=== PATIENT | male | born 1970 | race African-American/Black ===

== ENCOUNTER 2017-04-30 09:42 | Emergency (ER) | payer OTHER ==
[2017-04-30 10:00] VITALS: BP 143/83; PULSE 89; TEMP 98.1; BMI 24.3
--- NOTE | 2017-04-30 10:48 | PDOC ---
History of Present Illness - General Chief Complaint: Back Pain Stated Complaint: PAIN/ BACK, ABD Time Seen by Provider: 04/30/17 10:48 Past History - Past Medical History Allergies/Adverse Reactions: Allergies Allergy/AdvReac Type Severity Reaction Status Date / Time No Known Allergies Allergy Unverified 04/30/17 09:54 COPD: No - Suicide/Smoking/Psychosocial Hx Smoking History: Current every day smoker Number of Cigarettes Smoked Daily: 10 Information on smoking cessation initiated: Yes 'Breaking Loose' booklet given: 04/30/17 Hx Alcohol Use: No Drug/Substance Use Hx: No Substance Use Type: None *Physical Exam - Vital Signs Last Vital Signs Temp Pulse Resp BP Pulse Ox 98.1 F 89 18 143/83 100 04/30/17 09:55 04/30/17 09:55 04/30/17 09:55 04/30/17 09:55 04/30/17 09:55
[2017-04-30] MEDS ORDERED: KETOROLAC TROMETHAMINE 60 MG/2 ML VIAL IM ONE (11:17)
--- NOTE | 2017-04-30 11:17 | PDOC ---
History of Present Illness - General Chief Complaint: Back Pain Stated Complaint: PAIN/ BACK, ABD Time Seen by Provider: 04/30/17 10:48 History Source: Patient Exam Limitations: No Limitations - History of Present Illness Initial Comments: 04/30/17 11:19 Patient here with complaints of low back pain. 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 has worsened pain and mild spasm to his low back. 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 Related to being dehydrated. Has used ibuprofen for this pain with minimal resolved. also has a mass to his low back that was excised in 1990 but it has recurred Occurred: reports: just prior to arrival Severity: reports: moderate Pain Location: reports: back Associated Symptoms (Fall): denies symptoms Past History - Travel Traveled outside of the country in the last 30 days: No Close contact w/someone who was outside of country & ill: No - Past Medical History Allergies/Adverse Reactions: Allergies Allergy/AdvReac Type Severity Reaction Status Date / Time No Known Allergies Allergy Unverified 04/30/17 09:54 Home Medications: Ambulatory Orders Cyclobenzaprine HCl [Flexeril 10 mg] 10 mg PO BID PRN #14 tablet 04/30/17 Naproxen [Naprosyn -] 500 mg PO BID #20 tablet 04/30/17 COPD: No - Suicide/Smoking/Psychosocial Hx Smoking History: Current every day smoker Number of Cigarettes Smoked Daily: 10 Information on smoking cessation initiated: Yes 'Breaking Loose' booklet given: 04/30/17 Hx Alcohol Use: No Drug/Substance Use Hx: No Substance Use Type: None Trauma Specific PMHX - Complaint Specific PMHX Back Injury: No Neck Injury: No Review of Systems - Review of Systems Able to Perform ROS?: Yes Is the patient limited Setswana proficient: Yes Constitutional: Yes: Symptoms Reported HEENTM: Yes: See HPI. No: Symptoms Reported Respiratory: No: Symptoms reported Cardiac (ROS): No: Symptoms Reported ABD/GI: No: Symptoms Reported Musculoskeletal: Yes: Symptoms Reported, See HPI, Back Pain, Muscle Pain, Muscle Weakness Integumentary: No: Symptoms Reported Neurological: Yes: See HPI. No: Symptoms reported All Other Systems: Reviewed and Negative *Physical Exam - Vital Signs Last Vital Signs Temp Pulse Resp BP Pulse Ox 98.1 F 89 18 143/83 100 04/30/17 09:55 04/30/17 09:55 04/30/17 09:55 04/30/17 09:55 04/30/17 09:55 - Physical Exam General Appearance: Yes: Nourished, Appropriately Dressed, Apparent Distress, Moderate Distress HEENT: positive: SPENCER, Normal ENT Inspection, TMs Normal, Pharynx Normal Neck: positive: Supple. negative: Tender, Lymphadenopathy (R), Lymphadenopathy (L) Respiratory/Chest: positive: Lungs Clear, Normal Breath Sounds Gastrointestinal/Abdominal: positive: Soft. negative: Tender Musculoskeletal: positive: Normal Inspection, Decreased Range of Motion, Muscle Spasm (mild spasm to lumbar paravertebral muscles ), Other (sent with large soft tissue mass to midpoint lumbar spine which is tender around circumference however no erythema, redness, or evidence of infection. Has no true spine tenderness, but mild spasm noted to the paravertebral spinous muscles) Extremity: positive: Normal Capillary Refill, Normal Inspection, Normal Range of Motion. 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 Lipoma measuring 4.8 4.40.9 cm and given referral for surgical excision *DC/Admit/Observation/Transfer Diagnosis at time of Disposition: Lipoma of back Low back strain Qualifiers: Encounter type: initial encounter Qualified Code(s): S39.012A - Strain of muscle, fascia and tendon of lower back, initial encounter - Discharge Dispostion Disposition: HOME Condition at time of disposition: Stable Admit: No - Prescriptions Prescriptions: Cyclobenzaprine HCl [Flexeril 10 mg] 10 mg PO BID PRN #14 tablet PRN Reason: spasm Naproxen [Naprosyn -] 500 mg PO BID #20 tablet - Referrals Referrals: Juan Suarez MD [Staff Physician] - - Patient Instructions Printed Discharge Instructions: Lipoma, DI for Back Strain or Sprain Additional Instructions: Rest, no heavy lifting or exercise until pain is resolved Hot soaks to neck and low back as often as possible/hot showers or Jacuzzis No massage or therapy until spasm is gone Continue ibuprofen 2-200 mg tablets every 6 hours for the next 3 days then as needed for pain and swelling Cyclobenzaprine 1-10mg every 8 hours as needed for spasm If not significant improvement within 24 hours with medication and rest regime, followup with private physician for change in medications and /or therapy. - Post Discharge Activity Forms/Work/School Notes: Back to Work
[2017-04-30] MEDS ORDERED: KETOROLAC TROMETHAMINE 60 MG/2 ML VIAL ONE (11:21)
== END 2017-04-30 13:14 | disposition home or self-care (01) ==
LOC: JERFT 09:42
PROC: 3E0233Z Introduction of Anti-inflammatory into Muscle, Percutaneous Approach (ICD-10-PCS; principal; 2017-04-30)
DX: S39.012A Strain of muscle, fascia and tendon of lower back, initial encounter (principal); D17.1 Benign lipomatous neoplasm of skin and subcutaneous tissue of trunk; X50.0XXA Overexertion from strenuous movement or load, initial encounter; Y93.89 Activity, other specified; Y92.89 Other specified places as the place of occurrence of the external cause; Y99.0 Civilian activity done for income or pay
CPT/HCPCS: 76604; 99281-25

== ENCOUNTER 2017-10-30 18:57 | Emergency (ER) | payer OTHER ==
[2017-10-30 19:21] VITALS: BP 138/103; PULSE 97; TEMP 98.8; BMI 33.2
--- NOTE | 2017-10-30 19:22 | PDOC ---
Rapid Medical Evaluation Chief Complaint: Back Pain Time Seen by Provider: 10/30/17 19:18 Medical Evaluation: Allergies Allergy/AdvReac Type Severity Reaction Status Date / Time No Known Allergies Allergy Unverified 08/23/17 09:16 10/30/17 19:18 S: Back pain s/p surgery (lipoma removal)08/[address] Paul . c/o back pain radiating to left leg pain on and off since surgery. today pain worsening. patient also c/o left shoulder pain. patient reports taking naproxen with no relief in pain O: patient alert ox3. surgical site clean dry and intact. mild swelling at the site. A: acute on chronic back pain P: xray Patient to the ER for further management of care. 10/30/17 19:36
--- NOTE | 2017-10-30 21:28 | PDOC ---
History of Present Illness - General Chief Complaint: Back Pain Stated Complaint: PAIN Time Seen by Provider: 10/30/17 19:18 History Source: Patient Exam Limitations: No Limitations - History of Present Illness Initial Comments: This is a 47 YOM with h/o chronic back pain (with left sciatica since a work injury in 2013), rhabdomyolysis (in 2013 from overworking/dehydration at work) and back lipoma removal in 08/[address] Paul who p/w exacerbation of his chronic back pain radiating down the left leg. The pain is up to 10/10, it is the worst in his left upper buttock, and it radiates diffusely down his left leg to the bottom of the left foot. He states this is the same pain as normal for him, but it is worsened today. He has been taking naproxen sodium and Tylenol at home without relief. He has previously gotten relief with Flexeril but has run out of this prescription. He denies any recent falls or trauma. His PCP had ordered an MRI lumbar spine which showed disc bulging and herniations, disc height loss, and levoscoliosis. He has referral information for a neurologist and an orthopedist already and has plans to follow up with them. Past History - Past Medical History Allergies/Adverse Reactions: Allergies Allergy/AdvReac Type Severity Reaction Status Date / Time No Known Allergies Allergy Unverified 08/23/17 09:16 Home Medications: Ambulatory Orders Cyclobenzaprine HCl [Flexeril 10 mg] 10 mg PO BID PRN #14 tablet 04/30/17 Omeprazole 20 mg PO DAILY 08/22/17 Methocarbamol [Robaxin -] 500 mg PO TID #21 tablet 10/31/17 Anemia: No Asthma: No Cancer: No Cardiac Disorders: No CVA: No COPD: No CHF: No Dementia: No Diabetes: No GI Disorders: Yes (reflux) Disorders: No HTN: No Hypercholesterolemia: No Liver Disease: No Seizures: No Thyroid Disease: No - Surgical History Orthopedic Surgery: Yes (r wrist) - Suicide/Smoking/Psychosocial Hx Smoking History: Current every day smoker Number of Cigarettes Smoked Daily: 10 Information on smoking cessation initiated: No 'Breaking Loose' booklet given: 08/23/17 Hx Alcohol Use: No Drug/Substance Use Hx: No Substance Use Type: None Hx Substance Use Treatment: No Trauma Specific PMHX - Complaint Specific PMHX Back Injury: No Neck Injury: No Review of Systems - Review of Systems Able to Perform ROS?: Yes Constitutional: No: Chills, Fever, Unexplained wgt Loss HEENTM: No: Nose Congestion, Throat Pain Respiratory: No: Cough, Shortness of Breath Cardiac (ROS): No: Chest Pain, Palpitations ABD/GI: No: Constipated, Diarrhea, Nausea, Vomiting : No: Burning, Dysuria Musculoskeletal: Yes: Back Pain, Muscle Pain (left leg), Muscle Weakness (left leg). No: Neck Pain Integumentary: No: Bruising, Rash Neurological: Yes: Headache (mild chronic). No: Numbness, Tingling, Weakness, Dizziness Endocrine: No: Unexplained Weight Gain, Unexplained Weight Loss *Physical Exam - Vital Signs Last Vital Signs Temp Pulse Resp BP Pulse Ox 98.8 F 97 H 19 138/103 100 10/30/17 19:19 10/30/17 19:19 10/30/17 19:19 10/30/17 19:19 10/30/17 19:19 - Physical Exam General Appearance: Yes: Nourished, Appropriately Dressed, Other (alert, oriented, slightly uncomfortable appearing adult male accompanied by his , holding left lower back with left hand, leaning to the right while sitting down , answering questions appropriately). No: Apparent Distress HEENT: positive: EOMI, SPENCER, Normal Voice, Hearing Grossly Normal. negative: Scleral Icterus (R), Scleral Icterus (L), Nasal Congestion Neck: positive: Trachea midline, Supple. negative: Tender, Rigid Respiratory/Chest: positive: Lungs Clear, Normal Breath Sounds. negative: Respiratory Distress, Crackles, Rhonchi, Stridor, Wheezing Cardiovascular: positive: Regular Rhythm, Regular Rate, S1, S2. negative: Edema , JVD, Murmur Gastrointestinal/Abdominal: positive: Normal Bowel Sounds, Flat, Soft. negative : Tender, Organomegaly, Pulsatile Mass, Guarding Musculoskeletal: positive: Normal Inspection, Vertebral Tenderness (ttp at the midline from L2-S1 most pronounced over area of swelling surrounding incision from lipoma removal which is otherwise CDI without erythema). negative: Decreased Range of Motion Extremity: positive: Normal Capillary Refill, Normal Inspection, Normal Range of Motion, Other (tenderness to compression of the left sciatic nerve reproduces the chief complaint exactly). negative: Tender, Cyanosis Integumentary: positive: Normal Color, Dry, Warm. 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 negative: Facial Droop, Numbness, Sensory Deficit, Finger to Nose, Confused, Disoriented ED Treatment Course - LABORATORY CBC & Chemistry Diagram: 10/30/17 22:50 10/30/17 22:50 Medical Decision Making - Medical Decision Making Patient with h/o with chronic back pain p/w acute exacerbation of same chronic back pain. No new red flag symptoms (see HPI). Initial Vital Signs Temp Pulse Resp BP Pulse Ox 98.8 F 97 H 19 138/103 100 10/30/17 19:19 10/30/17 19:19 10/30/17 19:19 10/30/17 19:19 10/30/17 19:19 Exam: alert, oriented, slightly uncomfortable appearing adult male accompanied by his , holding left lower back with left hand, leaning to the right while sitting down, answering questions appropriately, ttp at the midline from L2-S1 most pronounced over area of swelling surrounding incision from lipoma removal which is otherwise CDI without erythema DDX IBNLT: spinal epidural abscess, epidural hematoma, DDD, DJD, osteophyte, compression fxr, other vertebral or spinous process fxr; much LL malignancy, meningitis, or other more concerning etiology. W/U ordered: CT L-spine without contrast (patient's Cr is 1.6 and cannot have contrast), LSXR, CBCD, CMP TX ordered: IVF, morphine Reassessment: Walking around the department, pain much improved, exam is benign , patient wants to go home. Laboratory Tests 10/30/17 10/30/17 22:50 22:50 WBC 9.4 RBC 4.53 Hgb 14.5 Hct 41.9 MCV 92.4 MCH 31.9 MCHC 34.5 RDW 13.9 Plt Count 238 MPV 8.3 Neutrophils % 37.9 L Lymphocytes % 52.8 H Monocytes % 6.2 Eosinophils % 2.2 Basophils % 0.9 Sodium 143 Potassium 4.4 Chloride 108 H Carbon Dioxide 29 Anion Gap 6 L BUN 20 H D Creatinine 1.6 H D Creat Clearance w eGFR 46.17 Random Glucose 79 Calcium 8.8 Total Bilirubin 0.7 D AST 25 D ALT 31 D Alkaline Phosphatase 64 D Total Protein 7.7 Albumin 4.1 Repeat exam is benign, patient wants to go home, VS are wnl on repeat assessment. The patient has gotten significant relief of symptoms with ED medications. They are appropriate for discharge with close outpatient follow up. The patient is comfortable with this plan and will follow up with their PCP in 1 -3 days. They are counseled on importance of proactive pain management and follow up with ortho, neurology, and Dr. Paul. Return precautions are discussed and they will come back to the ER if necessary. *DC/Admit/Observation/Transfer Diagnosis at time of Disposition: Soft tissue swelling Low back pain with sciatica Qualifiers: Chronicity: chronic Back pain laterality: unspecified Sciatica laterality: sciatica of left side Qualified Code(s): M54.42 - Lumbago with sciatica, left side - Discharge Dispostion Disposition: HOME Condition at time of disposition: Stable Decision to Admit order: No - Prescriptions Prescriptions: Methocarbamol [Robaxin -] 500 mg PO TID #21 tablet - Referrals Referrals: Collins Carrillo MD [Primary Care Provider] - - Patient Instructions Printed Discharge Instructions: DI for Back Pain With Sciatica Additional Instructions: You were seen in the ER for an acute flare-up of back pain with left sciatica. 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 Also take Tylenol for pain. Please follow up with your orthopedist and neurologist/ neurosurgeon, and also with Dr. Paul as scheduled. Please also follow up with your regular PCP doctor in 1-3 days, and discuss changing your pain management regimen so that you can get on top of your back pain before getting to the point where you need to come to the ER. Call their clinic as soon as possible, tell them you were seen in the ER fr back pain, and tell them you need an appointment. If you have any new or worsening symptoms please come back to the ER at any time (24 hours a day), especially for fever, new numbness new tingling new weakness, new urinary or bowel incontinence or retention, or other new symptoms. If you are having severe or life threatening symptoms, or symptoms that make it unsafe to drive or have someone drive you, please call 911. - Post Discharge Activity
--- NOTE | 2017-10-30 21:37 | PDOC ---
Attending Attestation - Resident Resident Name: Cami Bernabe - ED Attending Attestation I have performed the following: I have examined & evaluated the patient, The case was reviewed & discussed with the resident, I agree w/resident's findings & plan, Exceptions are as noted <Jose Wells - Last Filed: 10/30/17 21:37> - HPI HPI: 10/30/17 23:20 47 yom with pmh lipoma rmoval from lumbar back in 08/18 (Dr. Paul), who presents with exacerbated chronic lower back pain radiating to left leg. The patient states that the mechanism of his pain is the same it always has been but worsel. He endorses associated left leg weakness, numbness, and tingling. He reports difficulty walking secondary to his symptoms. Patient has taken tylenol and naproxen to treat pain without relief. - Physicial Exam PE: 10/30/17 23:20 GENERAL: Well-appearing, well-nourished. No apparent distress. HEENT: Normocephalic, atraumatic. PERRL, EOM intact. CARDIOVASCULAR: Normal S1, S2. Regular rate and rhythm. PULMONARY: Clear to auscultation bilaterally. ABDOMEN: Soft, non-distended, non-tender. EXTREMITIES: Normal ROM in all four extremities. No gross deformities. SKIN: Warm, dry. No rash NEUROLOGICAL: No focal neurological deficits. - Medical Decision Making 10/30/17 23:21 Documentation prepared by Jose Luis Rose, acting as emergency medical services coordinator for Jose Wells DO. <Jose Luis Rose - Last Filed: 10/30/17 23:21>
[2017-10-30] MEDS ORDERED: morphine CARPU-JECT 4 MG/1 ML DISP.SYRIN IVPUSH ONE (22:22)
[2017-10-30] MEDS ORDERED: SODIUM CHLORIDE 0.9% 500 ML INFUS.BAG IV ONE (22:22)
[2017-10-30] MEDS ORDERED: morphine SULFATE 4 MG/ML VIAL ONE (22:27)
[2017-10-30 23:03] LABS: BASO % 0.9 % (0-2.0); EOS % 2.2 % (0-4.5); HEMATOCRIT 41.9 % (35.4-49); HEMOGLOBIN 14.5 GM/dL (11.7-16.9); LYMPH % 52.8 % (8-40); MCH 31.9 pg (25.7-33.7); MCHC 34.5 g/dl (32.0-35.9); MEAN CELL VOLUME 92.4 fl (80-96); MEAN PLT VOLUME 8.3 fl (7.5-11.1); MONO % 6.2 % (3.8-10.2); NEUT % 37.9 % (42.8-82.8); PLATELET COUNT 238 K/MM3 (134-434); RBC 4.53 M/mm3 (4.00-5.60); RDW 13.9 % (11.9-15.9); WHITE BLOOD COUNT 9.4 K/mm3 (4.0-10.0)
[2017-10-30 23:21] LABS: ALBUMIN 4.1 g/dl (3.4-5.0); ANION GAP 6 (8-16); BILIRUBIN,TOTAL 0.7 mg/dL (0.2-1.0); BLOOD UREA NITROGEN 20 mg/dL (7-18); CALCIUM 8.8 mg/dL (8.5-10.1); CHLORIDE 108 mmol/L (98-107); CO2 29 mmol/L (21-32); CREATININE 1.6 mg/dL (0.7-1.3); GLUCOSE,RANDOM 79 mg/dL (74-106); POTASSIUM 4.4 mmol/L (3.5-5.1); SGOT/AST 25 U/L (15-37); SGPT/ALT 31 U/L (12-78); SODIUM 143 mmol/L (136-145); TOT PROT 7.7 g/dl (6.4-8.2)
[2017-10-30 23:22] LABS: ALK PHOS 64 U/L (45-117)
== END 2017-10-31 02:29 | disposition home or self-care (01) ==
LOC: JER 18:57
PROC: 3E0337Z Introduction of Electrolytic and Water Balance Substance into Peripheral Vein, Percutaneous Approach (ICD-10-PCS; principal; 2017-10-30)
PROC: 3E033NZ Introduction of Analgesics, Hypnotics, Sedatives into Peripheral Vein, Percutaneous Approach (ICD-10-PCS; 2017-10-30)
DX: M54.42 Lumbago with sciatica, left side (principal); M79.89 Other specified soft tissue disorders; G89.29 Other chronic pain; F17.210 Nicotine dependence, cigarettes, uncomplicated; K21.9 Gastro-esophageal reflux disease without esophagitis
CPT/HCPCS: 36415; 72100-TC-FY; 72131-TC; 80053; 85025; 99282-25